=== PATIENT | female | born 1990 | race Caucasian/White ===

== ENCOUNTER → 2018-12-16 | Outpatient (CLI) | payer OTHER ==
[~2018-12-16] MED LIST: ASCO-182 PO; CHOL400C10 PO; DOC100 PO; HEPA720D2 IM; HYOS0.128 PO; LACT1CAP12; LOR5 PO; MED150I IM ONLY; PER PO
== END ==
LOC: LAB 10:07
PROVIDERS: ATTEND Student in an Organized Health Care Education/Training Program
DX: N90.7 Vulvar cyst (principal); B96.89 Other specified bacterial agents as the cause of diseases classified elsewhere
CPT/HCPCS: 87070; 87077; 87186

== ENCOUNTER 2019-02-02 15:06 | Outpatient (RCR) | payer OTHER ==
[~2019-02-02] VITALS: Ht 170.2 cm; Wt 134.7 kg
--- NOTE | 2019-02-02 16:58 | Medical Nutrition Therapy ---
Nutrition Anthropometrics Height (Inches): 67 Weight (Pounds): 297 BMI: 46.5 Jim Nutrition Score: Jim Nutrition Risk Score: Dietary Referral Nutrition Risk Factors: Nutrition Risk Comment: Nutrition/Food History Breakfast: breakfast burrito or egg,/cheese 1c hashbrown Lunch: wing& pasta or senior sales manager salad Dinner: 2-3c pasta, meat, veg Snacks: trail mix, popcorn, cup noodle, tuna/crackers Nutritional Education Nutrition Education Topic: Weight Loss Diet Learning Readiness: Interested Teaching Methods: Discussion, Handout, Demonstration Response to Teaching: Verbalize understanding, Reinforcement needed Teaching Recipient: Patient Nutrition Counseling: Discussed goals for session. Pt has issues with tracking, looking at kcal. Pt states would like to lose some wt to help her get and avoid dx of diabetes that mom just got. Pt states however is comfortable with her wt but would like to concentrate on health. Reviewed Prediabetes Prevention Program results of delaying T2DM with 7% wt loss and exercise with lifestlyle change emphasis. Encouraged pt to work on lifestlye changes. Pt is going on vacation next week. Discussed various meal plan options. Provided plate method option with limiting CHO to 3-4 seving or 2c/meal, unlimited veggies, lean meat, 1-2 serving fat/meal with 1c CHO + protein food for PM and HS snacks. Encoruaged pt to just concentrate on 1/2 plate veggies while on vacation. Discussed FODMAP diet for her IBS. Will send infor on that. Recommend pt call for f/u when ready after vacation. Nutrition Monitoring & Eval RD Patient Assessment Time: [address] Assessment Type: RD Education Nutritional Comment: 60 minutes MNT for wt loss with BMI 45.6 Copies To Copies to: GREER ASHLEY MD ; SEAN DOLAN February 02, 2019 16:58
== END 2019-03-09 ==
LOC: DIET 15:06
PROVIDERS: ATTEND Obstetrics & Gynecology
DX: E66.01 Morbid (severe) obesity due to excess calories (principal); Z68.42 Body mass index [BMI] 45.0-49.9, adult
CPT/HCPCS: 97802